=== PATIENT | male | born 2000 | race Two or more races ===

== ENCOUNTER 2020-05-27 00:09 | Emergency (ER) | payer MEDICAID ==
[~2020-05-27] VITALS: Ht 172.7 cm; Wt 71.2 kg
[2020-05-27 00:12] VITALS: BP 124/74
--- NOTE | 2020-05-27 01:04 | NUR ---
pt amb to room from lobby
[2020-05-27] MEDS ORDERED: DEXAMETHASONE 4 MG TABLET ONE (01:24)
[2020-05-27] MEDS ORDERED: DEXAMETHASONE 4 MG TABLET PO ONE (01:30)
== END 2020-05-27 02:46 | disposition home or self-care (01) ==
LOC: ED 02:00
DX: J02.8 Acute pharyngitis due to other specified organisms (principal); R06.00 Dyspnea, unspecified; B97.89 Other viral agents as the cause of diseases classified elsewhere; R13.10 Dysphagia, unspecified; F41.9 Anxiety disorder, unspecified; J45.909 Unspecified asthma, uncomplicated
CPT/HCPCS: 71046; 87081; 87880; 99284